=== PATIENT | female | born 1970 | race Caucasian/White ===

== ENCOUNTER 2016-06-11 07:55 | Day surgery (SDC) | payer OTHER ==
[~2016-06-11 07:55] MED LIST: ACETAMINOPHEN 500 MG TABLET PO PRN; HYDROmorphone HCL 2 MG/ML VIAL IV PRN; MAG HYDROX/ALUMINUM HYD/SIMETH 30 ML UDC PO PRN; MAGNESIUM HYDROXIDE 30 ML UDC PO PRN; ONDANSETRON HCL/PF 2 MG/ML VIAL IV PRN; PROMETHAZINE HCL 25 MG in DEXTROSE 5 % IN WATER 50 ML IV PRN; RINGERS SOLUTION,LACTATED 1,000 ML IV PRN; ROPIVACAINE HCL/PF 40 MG in NORMAL SALINE 16 ML IJ PRN; ZOLPIDEM TARTRATE 5 MG TABLET PO PRN; ceFAZolin SODIUM 1 GM VIAL IV PRN; diphenhydrAMINE HCL 50 MG/ML VIAL IV PRN; oxyCODONE HCL/ACETAMINOPHEN 1 TAB TABLET PO PRN
[2016-06-11] MEDS ORDERED: BUPIVACAINE HCL/EPINEPHRINE 50 ML VIAL IJ ONE (09:00)
--- NOTE | 2016-06-11 09:52 | OR ---
Operative Report - Dictated Report Narrative: Date: 06/11/2016 Physician: Jesus Gould M.D. Mold Stamper: Nestor Redding PA-C Preoperative diagnosis: Left Knee chondral injury of patella, femoral trochlea, and medial femoral condyle Postoperative diagnosis: Left Knee chondral injury of patella, femoral trochlea , and medial femoral condyle Procedure: Left knee arthroscopy with abrasion chondroplasty of patella, femoral trochlea, and medial femoral condyle Anesthesia: MAC Plus local Complications: None Estimated blood loss: Minimal Tourniquet time: 33 minutes at 300 mmHg Specimens: None Retained implants: None Drains: None Indications: Sendy Is a 45 year-old female who has been followed in my clinic with complaints of knee pain consistent with suspected patellofemoral pathology. Physical exam and diagnostic imaging were consistent with these complaints and concern for chondral injury of the patella and femoral trochlea. Conservative measures have failed including, but not limited to, passage of time, activity modification, medications, and injections. The risks, benefits, and alternatives were discussed in clinic. The risks being , bleeding, infection, blood clots, nerve, tendon, ligament, blood vessel injury, persistent pain, arthrosis, need for additional procedures, and persistent symptoms. Consent was obtained in the clinic. Procedure: After marking the correct extremity in the preoperative holding area, a timeout was performed in the operating room. IV antibiotics consisting of 2 g of Ancef were administered prior to the procedure. A well-padded tourniquet was applied to the operative upper thigh. The leg was prepped and draped in a standard sterile fashion. 0.5% Marcaine with epinephrine was infused into the projected portal sites as well as the intra-articular space. A zayra incision was made for inferior lateral portal. A blunt trocar and cannula was introduced into the knee. The suprapatellar pouch revealed no loose bodies and no significant plica. The medial patella facet and central portion of the patella showed large unstable cartilage flaps with grade 3 chondral injury. The lateral patella facet showed grade 1 and 2 chondral changes. The trochlea showed large unstable cartilage flaps with grade 3 chondral change in an area measuring approximately 35 x 15 mm. The medial gutter revealed no loose bodies. The medial joint space was then entered utilizing a lateral post and valgus stress. A spinal needle was utilized for guidance into placement of an anterior medial portal. This was placed just superior to the medial meniscus ensuring that we could reach the posterior aspect of the medial joint space. A zayra incision was made in the site, and the probe was introduced to the knee. The medial joint space was examined, and the medial femoral condyle showed an approximately 1 x 1 cm area with a loose cartilage flap and grade 3 chondral change, otherwise no chondral changes The medial tibial plateau showed grade 1 and scattered grade 2 chondral changes. The medial meniscus was extensively probed and found to be stable to probing without tearing. The notch was then examined, and the ACL was noted to be intact. The PCL was noted to be intact. The lateral joint space was then examined using a varus force in the figure 4 position. Lateral femoral condyle showed no chondral changes. Lateral tibial plateau showed grade 1 and scattered grade 2 chondral changes. The lateral meniscus showed no tears and was stable to probing. The lateral gutter showed no loose bodies. Having identified the surgical pathology, a shaver was utilized in order to debride the medial femoral condyle, patella, and femoral trochlea. All unstable chondral flaps were debrided. Once it was felt that we adequately addressed the pathology, the knee was thoroughly irrigated. The fluid was evacuated ensuring that we have removed all meniscal, chondral, and any other loose bodies. A final evaluation of the joint showed no additional pathology. The fluid was then evacuated of the knee, and the trocar and camera were removed from the joint. The wounds were closed with interrupted nylon after placing 20 mL of 0.2% ropivacaine into the joint. Dressings consisting of Xeroform, 4 x 4, ABD, soft roll, and an Benji were applied. All sponge, needle, blade, and instrument counts were correct prior to closing the wounds. The patient was awoken and transferred to the post-anesthesia care unit in stable condition.
[2016-06-11 11:16] VITALS: BP 111/60
[2016-06-11] MEDS ORDERED: SENNOSIDES/DOCUSATE SODIUM 1 TAB TABLET PO SCH (21:00)
== END 2016-06-11 07:56 | disposition home or self-care (01) ==
LOC: AMB 07:55
PROVIDERS: ATTEND Orthopaedic Surgery
PROC: 0SBD4ZZ Excision of Left Knee Joint, Percutaneous Endoscopic Approach (ICD-10-PCS; principal; 2016-06-11 09:00)
DX: M22.42 Chondromalacia patellae, left knee (principal); M23.92 Unspecified internal derangement of left knee; K21.9 Gastro-esophageal reflux disease without esophagitis; E78.00 Pure hypercholesterolemia, unspecified; F17.200 Nicotine dependence, unspecified, uncomplicated; Z68.30 Body mass index [BMI] 30.0-30.9, adult

== ENCOUNTER 2016-12-25 17:22 | Emergency (ER) | payer OTHER ==
[2016-12-25] MEDS ORDERED: DIPHTH,PERTUSS(ACELL),TET VAC 0.5 ML VIAL IM ONE ×2 (17:40→17:43)
--- OUTSIDE RECORDS SUMMARY | 2016-12-25 18:20 | XMS REPORT | Summary of Care ---
:1970 Author Organization [facility] Address [address] [place] [address]- Care Team Providers Name Role Phone Miscellaneous, Physician Primary Care Physician Unavailable Problem List Condition Effective Dates Status Health Status Informant Arthritis(Confirmed) Active patient Carpal tunnel syndrome of left Active patient wrist(Confirmed) Chronic pain(Confirmed)1 Active patient Chronic sinusitis(Confirmed) Active patient Constipation(Confirmed) Active patient GERD (gastroesophageal reflux Active patient disease)(Confirmed) High cholesterol(Confirmed) Active patient Insomnia(Confirmed) Active patient Kidney stones(Confirmed) Active patient RLS (restless legs Active patient syndrome)(Confirmed) Seasonal allergies(Confirmed) Active patient 1back and right leg Encounter 12/10/16 - 12/10/16 [facility] [address] [place] [address]- Discharge Disposition: Discharged to Home or Self Care Attending Physician: Gucci DIANE, [facility] Vital Signs No data available for this section Allergies, Adverse Reactions, Alerts No Known Allergies Medications acetaminophen-HYDROcodone (HYDROcodone/Acetaminophen 10 mg/325 mg) 1 Tab, By Mouth, every 8 hours, Refills: 0 atorvastatin (atorvastatin 20 mg oral tablet) 1 Tab, By Mouth, Bedtime, Refills: 0 Conjugated Estrogens-MedroxyPROGESTERone (Prempro) By Mouth, once a day, As Needed, 0.45mg/1.5mg one PO daily, Refills: 0 gabapentin (gabapentin 600 mg oral tablet) 2 Tab, By Mouth, 3 Times a day, Refills: 0 levodopa By Mouth, Bedtime, for restless legs, Refills: 0 linaclotide (Linzess 145 mcg oral capsule) 1 Cap, By Mouth, once a day, Refills: 0 loratadine (loratadine 10 mg oral tablet) 1 Tab, By Mouth, once a day, Refills: 0 melatonin (Melatonin 5 mg oral tablet) 1 Tab, By Mouth, Bedtime, Refills: 0 raNITIdine (raNITIdine 150 mg oral capsule) 1 Cap, By Mouth, Twice a day, Refills: 0 Results No data available for this section Immunizations No data available for this section Procedures Procedure Date Related Diagnosis Body Site Arthroscopy of knee1 Carpal tunnel release2 section3 Colonoscopy Esophagogastroduodenoscopy ESWL of kidney Fusion4 Fusion5 [id number] Social History No data available for this section Assessment and Plan No data available for this section
--- NOTE | 2016-12-25 18:32 | ERNOTE ---
Medical Problem HPI - General Chief Complaint: Foreign Body Time Seen by Provider: 12/25/16 18:14 Source: patient Exam Limitations: no limitations - Immun/Allergies/Home Medications Immunizations: IMMUNIZATION HX Immunizations Up to Date Yes Allergies/Adverse Reactions: Allergies No Known Allergies Allergy (Verified 12/25/16 17:37) Home Medications: HOME MEDICATIONS Atorvastatin Calcium [Lipitor] 20 mg PO DAILY 06/10/16 [Last Taken Unknown] Estrogen,Con/M-Progest Acet [Prempro 0.3 mg-1.5 mg Tablet] 1 each PO DAILY 06/10 [Last Taken Unknown] Fluticasone Propionate [Flonase] 1 spray NS DAILY 06/10/16 [Last Taken Unknown] Gabapentin [Neurontin] 1,200 mg PO TID 06/10/16 [Last Taken Unknown] HYDROcodone/ACETAMINOPHEN [Hydrocodon-Acetaminophn 10-325] 1 tab PO Q6H PRN [Last Taken Unknown] Ibuprofen [Motrin] 400 mg PO Q6H PRN 06/10/16 [Last Taken Unknown] Linaclotide [Linzess] 145 mcg PO HS 06/10/16 [Last Taken Unknown] Loratadine [Claritin] 10 mg PO DAILY 06/10/16 [Last Taken Unknown] Multivitamins [Multivitamin Phyllis] 1 cap PO DAILY 06/10/16 [Last Taken Unknown] Ranitidine HCl [Zantac] 150 mg PO BID 06/10/16 [Last Taken Unknown] Cephalexin Monohydrate [Keflex] 500 mg PO Q8H #20 capsule 12/25/16 [Last Taken Unknown] Melatonin 10 mg PO HS 12/25/16 [Last Taken Unknown] - History of Present History Narrative: Patient was walking in yard and stepped on a sonal nail, she was wearing flip- flops, denies any other injuries Date (Duration): 12/25/16 Review of Systems - Review of Systems Constitutional: Absent: recent illness, fever ENT: Present: no symptoms reported Respiratory: Absent: shortness of breath Cardiology: Absent: chest pain Gastrointestinal/Abdominal: Absent: nausea, abdominal pain Genitourinary: Present: no symptoms reported Musculoskeletal: Present: See HPI Skin: Present: See HPI Neurological: Absent: weakness, numbness - Patient's Past Medical History Patient History - Medical: Chronic Pain, Headache, Other Patient History - Cardiac/Respiratory: No pertinent hx Patient History - Cancer: No Hx of Cancer Patient History - Surgical Procedures: Other Patient History - Other: None - Family History Mother Family History - Medical: , Diabetes Type 2 Family History - Cardiac/Respiratory: Coronary Heart Disease, CHF, Hypertension , Hyperlipidemia Family History - Cancer: Cervical Father Family History - Medical: , No pertinent hx Family History - Cardiac/Respiratory: Myocardial Infarction Family History - Cancer: No pertinent family hx - Social History Living Situations: spouse Abuse History: No History of abuse Psych History: No pertinent hx Smoking Status: Current every day smoker Have you smoked in the past 12 months: Yes Alcohol Use: none Drug Use: none, other - Immunizations Immunizations Up to Date: Yes Physical Exam - Physical Exam General Appearance: Present: wd/wn, alert, no apparent distress Respiratory: Present: no respiratory distress, normal breath sounds, no accessory muscle use, lungs clear Cardiovascular/Chest: Present: regular rate, rhythm, no murmur Extremity Exam: Present: normal except - - right foot dirty with dried blood, puncture wound in forefoot, , other - normal pulses, sensation, cap refill Neurological Exam: Present: alert, oriented, normal mood/affect, no motor/ sensory deficits Skin Exam: Present: normal color, warm/dry ED Progress - Vital Signs Patient's Vital Signs:: I have reviewed the patient's vital signs. Vital Signs: Vital Signs 12/25/16 17:34 Temperature 37.1 C Pulse Rate 79 Respiratory 14 Rate Blood Pressure 125/53 O2 Sat by Pulse 98 Oximetry - X-Ray X-Ray #1 X-Ray: foot - foreign body soft tissue, no bony injury Interpretation: Reviewed by me - Progress/Reassessment Chief Complaint: Foreign Body Progress Note-Subjective: 12/25/16 18:20 nail not in foot anymore at time of exam, discussed puncture wound treatment, patient would prefer prophylactic treatment with antibiotics Departure - Departure Clinical Impression: Puncture wound of foot, right Qualifiers: Encounter type: initial encounter Qualified Code(s): S91.331A - Puncture wound without foreign body, right foot, initial encounter Disposition: Home self-care Condition: Good Instructions: Puncture Wound, [id number] Referrals: Vik Jo MD [Primary Care Provider] - Prescriptions: Cephalexin Monohydrate [Keflex] 500 mg PO Q8H #20 capsule
[2016-12-25 21:24] VITALS: BP 119/76
== END 2016-12-25 18:34 | disposition home or self-care (01) ==
LOC: ER 17:22
DX: S91.331A Puncture wound without foreign body, right foot, initial encounter (principal); X58.XXXA Exposure to other specified factors, initial encounter; Y93.9 Activity, unspecified; Y92.007 Garden or yard of unspecified non-institutional (private) residence as the place of occurrence of the external cause; Z23 Encounter for immunization; G89.29 Other chronic pain